=== PATIENT | female | born 1985 | race African-American/Black ===

== ENCOUNTER 2017-03-08 16:01 | Emergency (ER) | payer MEDICARE, OTHER ==
[2017-03-08 16:34] VITALS: BP 116/70; PULSE 78; RESP 16; TEMP 97.8
--- NOTE | 2017-03-08 17:20 | ED ---
Skin/Abscess/FB HPI - General Chief complaint: Skin/Abscess/Foreign Body Stated complaint: Bump in Ear/Cyst in Armpit Time Seen by Provider: 03/08/17 16:38 Source: patient, RN notes reviewed Mode of arrival: ambulatory Limitations: no limitations - History of Present Illness Initial comments: Patient is a 31-year-old female presents to the emergency room for evaluation of right ear lesion. Patient states that she noticed a few days ago small pimple -like lesion. Patient states that the area began draining today with increased pain. Patient does state that she has an earring over her tragus. patient is not sure if the earning is causing the irritation which caused the wound infection. Patient denies any decrease in hearing. Patient denies fevers or chills. Patient denies any neck pain or swollen lymph nodes. Patient denies history of abscesses or MRSA. Patient also states that a small bump forming over her right armpit. Patient states the lump was large yesterday and subsided in size today. Patient denies any drainage from the area. Patient denies any pain from the area. - Related Data Home Medications Medication Instructions Recorded Confirmed ARIPiprazole [Abilify] 5 mg PO HS 10/25/14 03/08/17 DULoxetine HCL [Cymbalta] 60 mg PO HS 10/25/14 03/08/17 traZODone HCL 150 mg PO HS 08/07/16 03/08/17 Previous Rx's Medication Instructions Recorded Sulfamethox-Tmp 800-160Mg [Bactrim 2 each PO Q12HR #56 tab 03/08/17 Ds] Allergies Allergy/AdvReac Type Severity Reaction Status Date / Time No Known Allergies Allergy Verified 03/08/17 16:34 Review of Systems ROS Statement: Those systems with pertinent positive or pertinent negative responses have been documented in the HPI. ROS Other: All systems not noted in ROS Statement are negative. Past Medical History Past Medical History: No Reported History History of Any Multi-Drug Resistant Organisms: None Reported Past Surgical History: No Surgical Hx Reported Past Psychological History: Anxiety, Bipolar, Depression Smoking Status: Current every day smoker Past Alcohol Use History: Rare Past Drug Use History: None Reported General Exam - General Exam Comments Initial Comments: sitting in exam room, no acute distress. Limitations: no limitations General appearance: alert, in no apparent distress Head exam: Present: atraumatic, normocephalic, normal inspection Eye exam: Present: normal appearance Expanded Ear exam: Absent: normal external inspection (Pea size draining abscess over the cavum of the ear, Earring in right tragus) Respiratory exam: Absent: respiratory distress Extremities exam: Present: normal inspection Back exam: Present: normal inspection Neurological exam: Present: alert, oriented X3, CN II-XII intact, normal gait Psychiatric exam: Present: normal affect, normal mood Skin exam: Present: warm, dry, intact, normal color. Absent: rash Course Vital Signs 03/08/17 16:30 Temperature 97.8 F Pulse Rate 78 Respiratory 16 Rate Blood Pressure 116/70 O2 Sat by Pulse 100 Oximetry Medical Decision Making - Medical Decision Making patient is a 31-year-old female presents to emergency for evaluation of right ear abscess. Abscess is already draining. Culture pending. Patient will be started on Bactrim. Advised patient to remove the earring until area has healed. Patient denies any fevers. Patient's vitals are stable. Patient states she understands everything that was discussed with her. Return parameters discussed. Disposition Clinical Impression: Abscess, ear canal Disposition: HOME SELF-CARE Condition: Good Instructions: Abscess (ED) Additional Instructions: keep area clean and dry. Clean area with warm water and antibacterial soap daily. Please remove the earring until area is healed. Take antibiotics as directed. Please follow up with primary care provider in 1-2 days. If any new symptom arises or symptoms worsen, return to ER as soon as possible. Prescriptions: Sulfamethox-Tmp 800-160Mg [Bactrim Ds] 2 each PO Q12HR #56 tab Referrals: Kieran Reyes MD [Primary Care Provider] - 1-2 days Time of Disposition: 17:17
== END 2017-03-08 17:29 | disposition home or self-care (01) ==
LOC: EC 16:01
DX: H60.01 Abscess of right external ear (principal); F41.9 Anxiety disorder, unspecified; F31.9 Bipolar disorder, unspecified; F17.200 Nicotine dependence, unspecified, uncomplicated; Z79.899 Other long term (current) drug therapy
CPT/HCPCS: 87070; 87205; 99283

== ENCOUNTER → 2017-03-23 | Outpatient (CLI) | payer MEDICARE, OTHER | END | disposition home or self-care (01) | LOC: RADECHMAIN 13:05 | PROVIDERS: ATTEND Family Medicine | DX: R00.1 Bradycardia, unspecified (principal); R00.0 Tachycardia, unspecified | CPT/HCPCS: 93225; 93226 ==

== ENCOUNTER 2017-04-22 21:41 | Emergency (ER) | payer MEDICARE, OTHER ==
[2017-04-22] MEDS ORDERED: MORPHINE SULFATE 10 MG/ML SYRINGE IM STA (21:52)
[2017-04-22] MEDS ORDERED: MORPHINE SULFATE 4 MG/ML SYRINGE IV STA ×2 (22:06→22:45)
[2017-04-22] MEDS ORDERED: SODIUM CHLORIDE 0.9% 1,000 ML IV STA (22:06)
[2017-04-22] MEDS ORDERED: ceFAZolin 1,000 MG in DEXTROSE/WATER 1 50ML.BAG IVPB STA (22:08)
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
[2017-04-22 22:59] VITALS: BP 146/69; PULSE 104; RESP 18; TEMP 98
== END 2017-04-22 22:58 | disposition other institution (70) ==
LOC: EC 21:41
DX: T23.002A Burn of unspecified degree of left hand, unspecified site, initial encounter (principal); X08.8XXA Exposure to other specified smoke, fire and flames, initial encounter; W39.XXXA Discharge of firework, initial encounter; Z79.899 Other long term (current) drug therapy; F41.9 Anxiety disorder, unspecified; F31.9 Bipolar disorder, unspecified; F17.200 Nicotine dependence, unspecified, uncomplicated
CPT/HCPCS: 16020; 99284; 96372; 96361; 96374; 96376; 73120; J2270 ×2; J0690

== ENCOUNTER 2018-07-14 13:06 | Emergency (ER) | payer MEDICARE, OTHER ==
[2018-07-14 13:10] VITALS: BP 99/71; PULSE 77; RESP 18; TEMP 97.8
[2018-07-14] MEDS ORDERED: predniSONE 20 MG TAB PO STA (13:41)
--- NOTE | 2018-07-14 13:42 | ED ---
Skin/Abscess/FB HPI - General Chief complaint: Skin/Abscess/Foreign Body Stated complaint: swollen lip Time Seen by Provider: 07/14/18 13:15 Source: patient, RN notes reviewed Mode of arrival: ambulatory Limitations: no limitations - History of Present Illness Initial comments: 32-year-old female who denies past medical history presents today for chief complaint of left upper lip swelling. Patient states that she woke up this morning around 6:15 she noticed swelling of the left upper lip, she thought she was bitten by a bug. Patient states that the swelling is stable at the same throughout the day, has not worsened. Patient denies any difficulty breathing, spread of the swelling to other lips, any swelling below the tongue or of the neck or face. Pt denies any dental pain, rash or any other associated symptoms. Pt appears well upon presentation, VS unremarkable. No signs of distress. Remainder of ROS (-) patient denies any recent fever, chills, shortness of breath, chest pain, back pain, abdominal pain, nausea or vomiting, numbness or tingling, dysuria or hematuria, constipation or diarrhea, headaches or visual changes, or any other complaints. - Related Data Home Medications Medication Instructions Recorded Confirmed ARIPiprazole [Abilify] 5 mg PO HS 10/25/14 04/22/17 DULoxetine HCL [Cymbalta] 60 mg PO HS 10/25/14 04/22/17 traZODone HCL 300 mg PO HS 08/07/16 04/22/17 Omeprazole 20 mg PO HS 04/22/17 04/22/17 Allergies Allergy/AdvReac Type Severity Reaction Status Date / Time No Known Allergies Allergy Verified 07/14/18 13:10 Review of Systems ROS Statement: Those systems with pertinent positive or pertinent negative responses have been documented in the HPI. ROS Other: All systems not noted in ROS Statement are negative. Constitutional: Denies: fever, chills, night sweats Eyes: Denies: vision change ENT: Denies: ear pain, throat pain, dental pain, hearing loss Respiratory: Denies: cough, dyspnea, wheezes, hemoptysis, stridor Cardiovascular: Denies: chest pain, palpitations, dyspnea on exertion, orthopnea Gastrointestinal: Denies: abdominal pain, nausea, vomiting Musculoskeletal: Denies: joint swelling, arthralgia Skin: Reports: as per HPI. Denies: rash Neurological: Denies: headache, weakness, numbness, paresthesias, confusion Past Medical History Past Medical History: No Reported History History of Any Multi-Drug Resistant Organisms: None Reported Past Surgical History: No Surgical Hx Reported Past Psychological History: Anxiety, Bipolar, Depression Smoking Status: Current every day smoker Past Alcohol Use History: Rare Past Drug Use History: None Reported General Exam - General Exam Comments Initial Comments: General: The patient is awake and alert, in no distress, and does not appear acutely ill. Pt is sitting, appears comfortable no signs of distress. Eye: Pupils are equal, round and reactive to light, extra-ocular movements are intact. No nystagmus. There is normal conjunctiva bilaterally. No signs of icterus. Ears, nose, mouth and throat: There are moist mucous membranes and no oral lesions. Neck: The neck is supple, there is no tenderness or JVD. Cardiovascular: There is a regular rate and rhythm. No murmur, rub or gallop is appreciated. Respiratory: Lungs are clear to auscultation, respirations are non-labored, breath sounds are equal. No wheezes, stridor, rales, or rhonchi. Musculoskeletal: Normal ROM, no tenderness. Strength 5/5. Sensation intact. Pulses equal bilaterally 2+. Neurological: A&O x 3. CN II-XII intact, There are no obvious motor or sensory deficits. Coordination appears grossly intact. Speech is normal. Skin: Skin is warm and dry and no rashes or lesions are noted. Very mild swelling of the left side of the upper lip. No palpable lesion or visible break in the skin. Psychiatric: Cooperative, appropriate mood & affect, normal judgment. Limitations: no limitations Course Vital Signs 07/14/18 13:07 Temperature 97.8 F Pulse Rate 77 Respiratory 18 Rate Blood Pressure 99/71 O2 Sat by Pulse 98 Oximetry Medical Decision Making - Medical Decision Making Physical exam reveals left upper lip swelling, pt denies any new medications stating she has been on Trazadone for bipolar for the past 5 years. Pt did think she might have been bit by a bug however there are no signs or symptoms on exam. pt denies trauma, there is no dental pain to palpation of the teeth, gingiva on exam. At this time I feel pt could be having an allergic reaction, although given no clear PE findings for breaking in the skin it is possible was bitten by an insect. There is no generalized swelling of the lips, tongue, neck , face concering for angioedema. No oral findings of dental abscess. Pt denies any form of respiratory distress at this time. Pt given 20mg of prednisone PO. Pt did not have a ride home pt given prescription for Benadryl 25mg to be taken at home. pt was given specific instruction to return for any worsening symptoms. Case discussed with Dr. Rob prior to d/c. Disposition Clinical Impression: Lip swelling Narrative: upper lip left side Disposition: HOME SELF-CARE Condition: Good Instructions: General Allergic Reaction (ED) Additional Instructions: Please use medication as discussed. Please follow-up with family doctor in the next 2 days of symptoms have not improved. Please return to emergency room if the symptoms increase or worsen or for any other concerns. Is patient prescribed a controlled substance at d/c from ED?: No Referrals: Kieran Reyes MD [Primary Care Provider] - 1-2 days Time of Disposition: 13:42
== END 2018-07-14 13:58 | disposition home or self-care (01) ==
LOC: EC 13:06
DX: R22.0 Localized swelling, mass and lump, head (principal); F41.9 Anxiety disorder, unspecified; F31.9 Bipolar disorder, unspecified; F17.200 Nicotine dependence, unspecified, uncomplicated; Z79.899 Other long term (current) drug therapy
CPT/HCPCS: 99283

== ENCOUNTER 2018-08-24 15:02 | Emergency (ER) | payer MEDICARE, OTHER ==
[2018-08-24 15:10] VITALS: PULSE 63; RESP 18
--- NOTE | 2018-08-24 15:15 | ED ---
General Adult HPI - General Chief complaint: Chest Pain Stated complaint: Chest pain Time Seen by Provider: 08/24/18 15:05 Source: EMS, RN notes reviewed Mode of arrival: EMS Limitations: no limitations - History of Present Illness Initial comments: This a 32-year-old female who presents to the emergency department complaining that while she was in a diner she started having her heart race she became lightheaded and thought she was given a passout. Patient states she was also had shortness of breath and some chest discomfort. Patient states that lasted about 5-10 minutes before completely resolved on its own. Patient states she had one other episode before where she thought she was given a passout but it was shortly after she had given plasma. Patient denies having donated plasma recently. Patient denies any drug use or alcohol use. Patient currently denies any symptoms. Patient denies any swelling to her legs or calf tenderness. Patient denies any headache patient denies any numbness weakness. Patient denies any recent fever chills or cough - Related Data Home Medications Medication Instructions Recorded Confirmed ARIPiprazole [Abilify] 5 mg PO DAILY 10/25/14 08/24/18 traZODone HCL 300 mg PO HS 08/07/16 08/24/18 Allergies Allergy/AdvReac Type Severity Reaction Status Date / Time No Known Allergies Allergy Verified 08/24/18 15:36 Review of Systems ROS Statement: Those systems with pertinent positive or pertinent negative responses have been documented in the HPI. ROS Other: All systems not noted in ROS Statement are negative. Past Medical History Past Medical History: No Reported History History of Any Multi-Drug Resistant Organisms: None Reported Past Surgical History: No Surgical Hx Reported Additional Past Surgical History / Comment(s): plate and screws in left ankle Past Psychological History: Anxiety, Bipolar, Depression Smoking Status: Current every day smoker Past Alcohol Use History: Rare Past Drug Use History: Marijuana General Exam - General Exam Comments Initial Comments: GENERAL: Patient is well-developed and well-nourished. Patient is nontoxic and well- hydrated and is in mild distress. ENT: Neck is soft and supple. No significant lymphadenopathy is noted. Oropharynx is clear. Moist mucous membranes. Neck has full range of motion without eliciting any pain. EYES: The sclera were anicteric and conjunctiva were pink and moist. Extraocular movements were intact and pupils were equal round and reactive to light. Eyelids were unremarkable. PULMONARY: Unlabored respirations. Good breath sounds bilaterally. No audible rales rhonchi or wheezing was noted. CARDIOVASCULAR: There is a regular rate and rhythm without any murmurs gallops or rubs ABDOMEN: Soft and nontender with normal bowel sounds. SKIN: Skin is clear with no lesions or rashes and otherwise unremarkable. NEUROLOGIC: Patient is alert and oriented x3. Cranial nerves II through XII are grossly intact. Motor and sensory are also intact. Normal speech, volume and content. Symmetrical smile. MUSCULOSKELETAL: Normal extremities with adequate strength and full range of motion. No lower extremity swelling or edema. No calf tenderness. LYMPHATICS: No significant lymphadenopathy is noted PSYCHIATRIC: Normal psychiatric evaluation. Normal interpersonal interactions appears functionally intact in deals appropriately with others. No signs of depression. No signs of anxiety. Limitations: no limitations Course Vital Signs 08/24/18 15:07 Temperature 98.2 F Pulse Rate 63 Respiratory 18 Rate Blood Pressure 97/67 O2 Sat by Pulse 98 Oximetry Medical Decision Making - Medical Decision Making EKG shows a normal sinus rhythm at 61 bpm NC interval is on a 62 QRS is 70 QT interval 408 QTC is 410 per patient's EKG shows no ST segment elevation or depression or T wave abnormalities are noted Chest x-ray shows no acute abnormality. I went in to tell the patient we have and observe her overnight and she stated she did not want to stay and she would sign out AMA. Patient understands there is any problems she'll return. Patient states she understands the risks of leaving AGAINST MEDICAL ADVICE - Lab Data Result diagrams: 08/24/18 15:27 08/24/18 15:27 Lab Results 08/24/18 08/24/18 08/24/18 Range/Units 15:27 15:27 15:27 WBC 6.4 (3.8-10.6) k/uL RBC 4.03 (3.80-5.40) m/uL Hgb 12.9 (11.4-16.0) gm/dL Hct 37.1 (34.0-46.0) % MCV 91.9 (80.0-100.0) fL MCH 31.9 (25.0-35.0) pg MCHC 34.7 (31.0-37.0) g/dL RDW 12.4 (11.5-15.5) % Plt Count 184 (150-450) k/uL Neutrophils % 58 % Lymphocytes % 35 % Monocytes % 4 % Eosinophils % 2 % Basophils % 0 % Neutrophils # 3.7 (1.3-7.7) k/uL Lymphocytes # 2.2 (1.0-4.8) k/uL Monocytes # 0.3 (0-1.0) k/uL Eosinophils # 0.1 (0-0.7) k/uL Basophils # 0.0 (0-0.2) k/uL PT (9.0-12.0) sec INR (<1.2) APTT (22.0-30.0) sec Sodium 136 L (137-145) mmol/L Potassium 4.4 (3.5-5.1) mmol/L Chloride 109 H (98-107) mmol/L Carbon Dioxide 23 (22-30) mmol/L Anion Gap 4 mmol/L BUN 17 (7-17) mg/dL Creatinine 0.81 (0.52-1.04) mg/dL Est GFR (CKD-EPI)AfAm >90 (>60 ml/min/1.73 sqM) Est GFR (CKD-EPI)NonAf >90 (>60 ml/min/1.73 sqM) Glucose 87 (74-99) mg/dL Calcium 9.0 (8.4-10.2) mg/dL Magnesium 2.1 (1.6-2.3) mg/dL Total Bilirubin 0.4 (0.2-1.3) mg/dL AST 21 (14-36) U/L ALT 26 (9-52) U/L Alkaline Phosphatase 42 (38-126) U/L Total Creatine Kinase 226 H (30-135) U/L CK-MB (CK-2) 1.6 (0.0-2.4) ng/mL CK-MB (CK-2) Rel Index 0.7 Troponin I <0.012 (0.000-0.034) ng/mL Total Protein 5.6 L (6.3-8.2) g/dL Albumin 3.2 L (3.5-5.0) g/dL TSH 0.922 (0.465-4.680) mIU/L Urine Opiates Screen (NotDetected) Ur Oxycodone Screen (NotDetected) Urine Methadone Screen (NotDetected) Ur Propoxyphene Screen (NotDetected) Ur Barbiturates Screen (NotDetected) U Tricyclic Antidepress (NotDetected) Ur Phencyclidine Scrn (NotDetected) Ur Amphetamines Screen (NotDetected) U Methamphetamines Scrn (NotDetected) U Benzodiazepines Scrn (NotDetected) Urine Cocaine Screen (NotDetected) U Marijuana (THC) Screen (NotDetected) 08/24/18 08/24/18 Range/Units 15:27 15:27 WBC (3.8-10.6) k/uL RBC (3.80-5.40) m/uL Hgb (11.4-16.0) gm/dL Hct (34.0-46.0) % MCV (80.0-100.0) fL MCH (25.0-35.0) pg MCHC (31.0-37.0) g/dL RDW (11.5-15.5) % Plt Count (150-450) k/uL Neutrophils % % Lymphocytes % % Monocytes % % Eosinophils % % Basophils % % Neutrophils # (1.3-7.7) k/uL Lymphocytes # (1.0-4.8) k/uL Monocytes # (0-1.0) k/uL Eosinophils # (0-0.7) k/uL Basophils # (0-0.2) k/uL PT 11.0 (9.0-12.0) sec INR 1.1 (<1.2) APTT 21.1 L (22.0-30.0) sec Sodium (137-145) mmol/L Potassium (3.5-5.1) mmol/L Chloride (98-107) mmol/L Carbon Dioxide (22-30) mmol/L Anion Gap mmol/L BUN (7-17) mg/dL Creatinine (0.52-1.04) mg/dL Est GFR (CKD-EPI)AfAm (>60 ml/min/1.73 sqM) Est GFR (CKD-EPI)NonAf (>60 ml/min/1.73 sqM) Glucose (74-99) mg/dL Calcium (8.4-10.2) mg/dL Magnesium (1.6-2.3) mg/dL Total Bilirubin (0.2-1.3) mg/dL AST (14-36) U/L ALT (9-52) U/L Alkaline Phosphatase (38-126) U/L Total Creatine Kinase (30-135) U/L CK-MB (CK-2) (0.0-2.4) ng/mL CK-MB (CK-2) Rel Index Troponin I (0.000-0.034) ng/mL Total Protein (6.3-8.2) g/dL Albumin (3.5-5.0) g/dL TSH (0.465-4.680) mIU/L Urine Opiates Screen Not Detected (NotDetected) Ur Oxycodone Screen Not Detected (NotDetected) Urine Methadone Screen Not Detected (NotDetected) Ur Propoxyphene Screen Not Detected (NotDetected) Ur Barbiturates Screen Not Detected (NotDetected) U Tricyclic Antidepress Not Detected (NotDetected) Ur Phencyclidine Scrn Not Detected (NotDetected) Ur Amphetamines Screen Not Detected (NotDetected) U Methamphetamines Scrn Not Detected (NotDetected) U Benzodiazepines Scrn Not Detected (NotDetected) Urine Cocaine Screen Not Detected (NotDetected) U Marijuana (THC) Screen Detected H (NotDetected) Disposition Clinical Impression: Chest pain, Near syncope Disposition: Left Against Medical Advice Referrals: Kieran Reyes MD [Primary Care Provider] - 1-2 days Time of Disposition: 16:59
[2018-08-24 15:47] LABS: Basophils % (A) 0 %; Eosinophils # (A) 0.1 k/uL (0-0.7); Eosinophils % (A) 2 %; HCT 37.1 % (34.0-46.0); HGB 12.9 gm/dL (11.4-16.0); Lymphocytes # (A) 2.2 k/uL (1.0-4.8); Lymphocytes % (A) 35 %; MCH 31.9 pg (25.0-35.0); MCHC 34.7 g/dL (31.0-37.0); MCV 91.9 fL (80.0-100.0); Mean Platelet Volume 8.4; Monocytes # (A) 0.3 k/uL (0-1.0); Monocytes % (A) 4 %; Neutrophils # (A) 3.7 k/uL (1.3-7.7); Neutrophils % (A) 58 %; Platelet Count 184 k/uL (150-450); RBC 4.03 m/uL (3.80-5.40); RDW 12.4 % (11.5-15.5); WBC 6.4 k/uL (3.8-10.6)
--- NOTE | 2018-08-24 15:49 | XR ---
EXAMINATION TYPE: XR chest 2V DATE OF EXAM: 08/24/2018 COMPARISON: NONE HISTORY: Dysrhythmia, chest pain TECHNIQUE: Frontal and lateral views of the chest are obtained. FINDINGS: There is no focal air space opacity, pleural effusion, or pneumothorax seen. The cardiac silhouette size is within normal limits. There is a spinal curvature. The osseous structures are int act. There are overlying cardiac leads. IMPRESSION: No acute cardiopulmonary process.
[2018-08-24 15:53] LABS: INR 1.1 (<1.2)
[2018-08-24 15:57] LABS: Amphetamine Screen,Urine Not Detected (NotDetected); Barbiturate Screen,Urine Not Detected (NotDetected); Benzodiazepines Screen,Urine Not Detected (NotDetected); Cocaine Screen,Urine Not Detected (NotDetected); Methadone Screen, Urine Not Detected (NotDetected); Opiate Screen,Urine Not Detected (NotDetected); Oxycodone Screen, Urine Not Detected (NotDetected); Phencyclidine Screen,Urine Not Detected (NotDetected); Tricyclic Antidepressant,Urine Not Detected (NotDetected); Urn Cannabinoid Scrn Detected (NotDetected)
[2018-08-24 16:02] LABS: Partial Thromboplastin Time 21.1 sec (22.0-30.0)
[2018-08-24 16:12] LABS: Creatine Kinase 226 U/L (30-135)
[2018-08-24 16:14] LABS: ALT 26 U/L (9-52); AST 21 U/L (14-36); Albumin 3.2 g/dL (3.5-5.0); Alkaline Phosphatase 42 U/L (38-126); Anion Gap 4 mmol/L; Blood Urea Nitrogen 17 mg/dL (7-17); Carbon Dioxide 23 mmol/L (22-30); Chloride 109 mmol/L (98-107); Glucose 87 mg/dL (74-99); Magnesium 2.1 mg/dL (1.6-2.3); Potassium 4.4 mmol/L (3.5-5.1); Sodium 136 mmol/L (137-145); Total Bilirubin 0.4 mg/dL (0.2-1.3); Total Protein 5.6 g/dL (6.3-8.2)
[2018-08-24 16:23] LABS: Creatine Kinase MB 1.6 ng/mL (0.0-2.4); Troponin I <0.012 ng/mL (0.000-0.034)
[2018-08-24 17:42] VITALS: BP 96/62; TEMP 97.8
== END 2018-08-24 17:41 | disposition left against medical advice (07) ==
LOC: EC 15:02
DX: R07.89 Other chest pain (principal); R55 Syncope and collapse; R06.02 Shortness of breath; R42 Dizziness and giddiness; F31.9 Bipolar disorder, unspecified; F41.9 Anxiety disorder, unspecified; F17.200 Nicotine dependence, unspecified, uncomplicated; Z79.899 Other long term (current) drug therapy; Z53.29 Procedure and treatment not carried out because of patient's decision for other reasons
CPT/HCPCS: 36415; 71046; 80053; 80306; 82550; 82553; 83735; 84443; 84484; 85025; 85610; 85730; 93005; 99285

== ENCOUNTER 2018-11-09 19:04 | Emergency (ER) | payer MEDICARE, OTHER ==
[2018-11-09 19:09] VITALS: RESP 18
--- NOTE | 2018-11-09 19:22 | ED ---
General Adult HPI - General Chief complaint: Psychiatric Symptoms Stated complaint: mental health Time Seen by Provider: 11/09/18 19:10 Source: patient, RN notes reviewed Mode of arrival: ambulatory Limitations: no limitations - History of Present Illness Initial comments: Patient is a pleasant 33-year-old female presenting to the emergency department by police escort for mental health evaluation. Patient states she did have bad thoughts earlier however is doing better at this time and no longer has those. Patient admits to previously having thoughts of self-harm. Patient denies suicidal ideation at this time. Patient does have a history of similar problems previously. No homicidal thoughts. No physical complaints. No alcohol or street drug use. No hallucinations. - Related Data Home Medications Medication Instructions Recorded Confirmed ARIPiprazole [Abilify] 5 mg PO DAILY 10/25/14 08/24/18 traZODone HCL 300 mg PO HS 08/07/16 08/24/18 Allergies Allergy/AdvReac Type Severity Reaction Status Date / Time No Known Allergies Allergy Verified 11/09/18 19:09 Review of Systems ROS Statement: Those systems with pertinent positive or pertinent negative responses have been documented in the HPI. ROS Other: All systems not noted in ROS Statement are negative. Constitutional: Denies: fever Eyes: Denies: eye pain ENT: Denies: ear pain Respiratory: Denies: cough Cardiovascular: Denies: chest pain Endocrine: Denies: fatigue Gastrointestinal: Denies: abdominal pain Genitourinary: Denies: dysuria Musculoskeletal: Denies: back pain Skin: Denies: rash Psychiatric: Reports: as per HPI Past Medical History Past Medical History: No Reported History History of Any Multi-Drug Resistant Organisms: None Reported Past Surgical History: No Surgical Hx Reported Additional Past Surgical History / Comment(s): plate and screws in left ankle Past Psychological History: Anxiety, Bipolar, Depression Smoking Status: Current every day smoker Past Alcohol Use History: Rare Past Drug Use History: Marijuana General Exam Limitations: no limitations General appearance: alert, in no apparent distress Head exam: Present: atraumatic Eye exam: Present: normal appearance Neck exam: Present: normal inspection Respiratory exam: Present: normal lung sounds bilaterally Cardiovascular Exam: Present: regular rate, normal rhythm GI/Abdominal exam: Present: soft. Absent: tenderness Extremities exam: Present: normal inspection Neurological exam: Present: alert Psychiatric exam: Present: normal affect Skin exam: Present: normal color Course Vital Signs 11/09/18 19:05 Temperature 98.4 F Pulse Rate 87 Respiratory 18 Rate Blood Pressure 101/66 O2 Sat by Pulse 99 Oximetry Medical Decision Making - Medical Decision Making Patient was seen by mental health services who does recommend discharge. Patient reevaluated and denies suicidal ideation and does contract for safety. Disposition Clinical Impression: Depression Disposition: HOME SELF-CARE Condition: Stable Instructions (If sedation given, give patient instructions): Depression (ED), Help Prevent Suicide (ED) Additional Instructions: Please follow-up with mental health services as directed. Also follow-up with primary care physician. Return for thoughts of self-harm or worsening symptoms. Is patient prescribed a controlled substance at d/c from ED?: No Referrals: Kieran Reyes MD [Primary Care Provider] - 1-2 days Time of Disposition: 20:08
[2018-11-09 20:06] LABS: Appearance,Urine Clear (Clear); Bilirubin,Urine Negative (Negative); Blood,Urine Negative (Negative); Color,Urine Light Yellow; Glucose,Urine (UA) Negative (Negative); Ketones,Urine Negative (Negative); Leukocyte Esterase,Urine Negative (Negative); Nitrite,Urine Negative (Negative); Protein,Urine Negative (Negative); Specific Gravity,Urine 1.005 (1.001-1.035); Urobilinogen,Urine <2.0 mg/dL (<2.0)
[2018-11-09 20:15] LABS: Amphetamine Screen,Urine Not Detected (NotDetected); Benzodiazepines Screen,Urine Not Detected (NotDetected); Cocaine Screen,Urine Not Detected (NotDetected); Opiate Screen,Urine Not Detected (NotDetected); Phencyclidine Screen,Urine Not Detected (NotDetected); Tricyclic Antidepressant,Urine Not Detected (NotDetected); Urn Cannabinoid Scrn Detected (NotDetected)
[2018-11-09 20:16] LABS: Barbiturate Screen,Urine Not Detected (NotDetected); Methadone Screen, Urine Not Detected (NotDetected); Oxycodone Screen, Urine Not Detected (NotDetected)
[2018-11-09 20:18] VITALS: BP 122/71; PULSE 59; TEMP 97.3
== END 2018-11-09 20:21 | disposition home or self-care (01) ==
LOC: EC 19:04
DX: F31.9 Bipolar disorder, unspecified (principal); F41.9 Anxiety disorder, unspecified; F17.200 Nicotine dependence, unspecified, uncomplicated; Z98.890 Other specified postprocedural states; Z79.899 Other long term (current) drug therapy
CPT/HCPCS: 80306; 81003; 99284

== ENCOUNTER 2019-03-16 08:32 | Emergency (ER) | payer MEDICARE, OTHER ==
[2019-03-16 08:41] VITALS: BP 112/70; PULSE 80; RESP 18; TEMP 97.6
--- NOTE | 2019-03-16 08:53 | ED ---
Female Urogenital HPI - General Chief complaint: Urogenital Stated complaint: poss uti Time Seen by Provider: 03/16/19 08:46 Source: patient, RN notes reviewed, old records reviewed Mode of arrival: ambulatory Limitations: no limitations - History of Present Illness Initial comments: Patient is a 33-year-old female presents for service today for complaints of dysuria. Patient reports that she has had symptoms for the past 2 days. She has history of UTIs. She can tell that she's has one at this time. Denies any significant back pain nausea vomiting. Patient states that she's had no vaginal discharge. Patient denies any recent fever, chills, shortness of breath, chest pain, back pain, abdominal pain, nausea vomiting, numbness or tingling, dysuria or hematuria, constipation or diarrhea, headaches or visual changes, or any other current symptoms Last Menstrual Period: 03/02/19 - Related Data Home Medications Medication Instructions Recorded Confirmed ARIPiprazole [Abilify] 5 mg PO HS 10/25/14 03/16/19 traZODone HCL 300 mg PO HS 08/07/16 03/16/19 Ibuprofen [Motrin Ib] 400 mg PO Q6H PRN 03/16/19 03/16/19 Varenicline [Chantix Continuing 1 mg PO BID 03/16/19 03/16/19 Pack] Previous Rx's Medication Instructions Recorded Nitrofurantoin Monohyd/M-Cryst 100 mg PO Q12HR #14 cap 03/16/19 [Macrobid] Phenazopyridine [Pyridium] 100 mg PO TID #9 tablet 03/16/19 Allergies Allergy/AdvReac Type Severity Reaction Status Date / Time No Known Allergies Allergy Verified 03/16/19 08:41 Review of Systems ROS Statement: Those systems with pertinent positive or pertinent negative responses have been documented in the HPI. ROS Other: All systems not noted in ROS Statement are negative. Past Medical History Past Medical History: No Reported History History of Any Multi-Drug Resistant Organisms: None Reported Past Surgical History: Orthopedic Surgery Additional Past Surgical History / Comment(s): plate and screws in left ankle Past Psychological History: Anxiety, Bipolar, Depression Smoking Status: Current every day smoker Past Alcohol Use History: Rare Past Drug Use History: Marijuana General Exam - General Exam Comments Initial Comments: 33-year-old female. Alert and oriented. No distress. Limitations: no limitations General appearance: alert, in no apparent distress Head exam: Present: atraumatic, normocephalic, normal inspection Eye exam: Present: normal appearance, PERRL, EOMI. Absent: scleral icterus, conjunctival injection, periorbital swelling ENT exam: Present: normal exam, mucous membranes moist Neck exam: Present: normal inspection. Absent: tenderness, meningismus, lymphadenopathy Respiratory exam: Present: normal lung sounds bilaterally. Absent: respiratory distress, wheezes, rales, rhonchi, stridor Cardiovascular Exam: Present: regular rate, normal rhythm, normal heart sounds. Absent: systolic murmur, diastolic murmur, rubs, gallop, clicks GI/Abdominal exam: Present: soft, normal bowel sounds. Absent: distended, tenderness, guarding, rebound, rigid Extremities exam: Present: normal inspection, full ROM, normal capillary refill. Absent: tenderness, pedal edema, joint swelling, calf tenderness Back exam: Present: normal inspection Neurological exam: Present: alert, oriented X3, CN II-XII intact Psychiatric exam: Present: normal affect, normal mood Course Vital Signs 03/16/19 08:39 Temperature 97.6 F Pulse Rate 80 Respiratory 18 Rate Blood Pressure 112/70 O2 Sat by Pulse 99 Oximetry Medical Decision Making - Medical Decision Making Patient is a 33-year-old female presents with dysuria for the past 2 days. Has history of urinary tract infections. Denies any back pain or abdominal pain. Patient's urinalysis does show significant hematuria. Patient had some bacteria noted in urine. Culture will be complete. Certainly Patient on Macrobid, advised close follow-up with primary care doctor. All cushions answer. - Lab Data Lab Results 03/16/19 03/16/19 Range/Units 08:54 08:54 Urine Color Light Yellow Urine Appearance Cloudy H (Clear) Urine pH 7.0 (5.0-8.0) Ur Specific [place] 1.013 (1.001-1.035) Urine Protein 1+ H (Negative) Urine Glucose (UA) Negative (Negative) Urine Ketones Negative (Negative) Urine Blood Small H (Negative) Urine Nitrite Negative (Negative) Urine Bilirubin Negative (Negative) Urine Urobilinogen <2.0 (<2.0) mg/dL Ur Leukocyte Esterase Large H (Negative) Urine RBC 50 H (0-5) /hpf Ur Squamous Epith Cells 2 (0-4) /hpf Urine Bacteria Rare H (None) /hpf Urine Mucus Rare H (None) /hpf Urine HCG, Qual Not Detected (Not Detectd) Disposition Clinical Impression: UTI (urinary tract infection) Disposition: HOME SELF-CARE Condition: Good Instructions (If sedation given, give patient instructions): Urinary Tract Infection in Women (ED) Additional Instructions: Patient advised to see PCP and return to ED if any alarming signs or symptoms occur. Prescriptions: Nitrofurantoin Monohyd/M-Cryst [Macrobid] 100 mg PO Q12HR #14 cap Phenazopyridine [Pyridium] 100 mg PO TID #9 tablet Is patient prescribed a controlled substance at d/c from ED?: No Referrals: Kieran Reyes MD [Primary Care Provider] - 1-2 days Time of Disposition: 09:13
[2019-03-16 09:07] LABS: Appearance,Urine Cloudy (Clear); Bacteria,Urine Rare /hpf; Bilirubin,Urine Negative (Negative); Blood,Urine Small (Negative); Color,Urine Light Yellow; Glucose,Urine (UA) Negative (Negative); Ketones,Urine Negative (Negative); Leukocyte Esterase,Urine Large (Negative); Mucus,Urine Rare /hpf; Nitrite,Urine Negative (Negative); Protein,Urine 1+ (Negative); RBC,Urine 50 /hpf (0-5); Specific Gravity,Urine 1.013 (1.001-1.035); Squamous Epithelial Cell,Urine 2 /hpf (0-4); Urobilinogen,Urine <2.0 mg/dL (<2.0)
== END 2019-03-16 09:24 | disposition home or self-care (01) ==
LOC: EC 08:32
DX: N39.0 Urinary tract infection, site not specified (principal); F41.9 Anxiety disorder, unspecified; F31.9 Bipolar disorder, unspecified; F17.200 Nicotine dependence, unspecified, uncomplicated; Z79.899 Other long term (current) drug therapy
CPT/HCPCS: 81001; 81025; 87086; 99284

== ENCOUNTER 2019-08-20 11:01 | Emergency (ER) | payer MEDICARE, OTHER ==
[2019-08-20 11:29] VITALS: TEMP 99
--- NOTE | 2019-08-20 12:03 | ED ---
General Adult HPI - General Chief complaint: Psychiatric Symptoms Stated complaint: Head injury Time Seen by Provider: 08/20/19 11:25 Source: patient, police, RN notes reviewed, old records reviewed Mode of arrival: ambulatory Limitations: no limitations - History of Present Illness Initial comments: This is a 33-year-old female who presents emergency department from the alf. Patient came in intoxicated last evening to the alf he started banging her head against a wall. Patient developed a large hematoma on her head and they brought her to the emergency department to be evaluated. Patient at that time was stating she was suicidal. Patient denies suicidality at this time. Patient did this at 3:57 AM this morning but because hematoma was getting larger they brought her into the emergency department now. Patient denies any neck pain. Patient denies any loss of consciousness or being days. Patient states she has a mild headache. Patient denies any other injury. Patient denies any illegal drugs other than marijuana. Patient states last night she was drinking vodka. - Related Data Home Medications Medication Instructions Recorded Confirmed ARIPiprazole [Abilify] 5 mg PO HS 10/25/14 08/20/19 traZODone HCL [Desyrel] 300 mg PO HS 08/20/19 08/20/19 Allergies Allergy/AdvReac Type Severity Reaction Status Date / Time No Known Allergies Allergy Verified 08/20/19 13:17 Review of Systems ROS Statement: Those systems with pertinent positive or pertinent negative responses have been documented in the HPI. ROS Other: All systems not noted in ROS Statement are negative. Past Medical History Past Medical History: No Reported History History of Any Multi-Drug Resistant Organisms: None Reported Past Surgical History: Orthopedic Surgery Additional Past Surgical History / Comment(s): plate and screws in left ankle Past Psychological History: Anxiety, Bipolar, Depression Smoking Status: Current every day smoker Past Alcohol Use History: Rare Past Drug Use History: Marijuana General Exam - General Exam Comments Initial Comments: GENERAL: Patient is well-developed and well-nourished. Patient is nontoxic and well- hydrated and is in mild distress. Patient has a large forehead hematoma ENT: Neck is soft and supple. No significant lymphadenopathy is noted. Oropharynx is clear. Moist mucous membranes. Neck has full range of motion without eliciting any pain. EYES: The sclera were anicteric and conjunctiva were pink and moist. Extraocular movements were intact and pupils were equal round and reactive to light. Eyelids were unremarkable. PULMONARY: Unlabored respirations. Good breath sounds bilaterally. No audible rales rhonchi or wheezing was noted. CARDIOVASCULAR: There is a regular rate and rhythm without any murmurs gallops or rubs. ABDOMEN: Soft and nontender with normal bowel sounds. SKIN: Skin is clear with no lesions or rashes and otherwise unremarkable. NEUROLOGIC: Patient is alert and oriented x3. Cranial nerves II through XII are grossly intact. Motor and sensory are also intact. Normal speech, volume and content. Symmetrical smile. MUSCULOSKELETAL: Normal extremities with adequate strength and full range of motion. LYMPHATICS: No significant lymphadenopathy is noted PSYCHIATRIC: Normal psychiatric evaluation. Limitations: no limitations Course Vital Signs 08/20/19 11:26 Temperature 99.0 F Pulse Rate 91 Respiratory 18 Rate Blood Pressure 123/81 O2 Sat by Pulse 98 Oximetry Medical Decision Making - Medical Decision Making Patient's CT of the brain to shows a hematoma no intracranial hemorrhage or skull fracture. EPS evaluated the patient and determined the patient go back the alf - Lab Data Lab Results 08/20/19 Range/Units 12:03 Urine Opiates Screen Not Detected (NotDetected) Ur Oxycodone Screen Not Detected (NotDetected) Urine Methadone Screen Not Detected (NotDetected) Ur Propoxyphene Screen Not Detected (NotDetected) Ur Barbiturates Screen Not Detected (NotDetected) U Tricyclic Antidepress Not Detected (NotDetected) Ur Phencyclidine Scrn Not Detected (NotDetected) Ur Amphetamines Screen Not Detected (NotDetected) U Methamphetamines Scrn Not Detected (NotDetected) U Benzodiazepines Scrn Not Detected (NotDetected) Urine Cocaine Screen Not Detected (NotDetected) U Marijuana (THC) Screen Detected H (NotDetected) Disposition Clinical Impression: Situational depression, Traumatic hematoma of forehead Disposition: HOME SELF-CARE Condition: Good Instructions (If sedation given, give patient instructions): Head Injury (ED), Hematoma (ED) Is patient prescribed a controlled substance at d/c from ED?: No Referrals: Kieran Reyes MD [Primary Care Provider] - 1-2 days Time of Disposition: 13:54
[2019-08-20 12:33] LABS: Amphetamine Screen,Urine Not Detected (NotDetected); Barbiturate Screen,Urine Not Detected (NotDetected); Benzodiazepines Screen,Urine Not Detected (NotDetected); Cocaine Screen,Urine Not Detected (NotDetected); Methadone Screen, Urine Not Detected (NotDetected); Opiate Screen,Urine Not Detected (NotDetected); Oxycodone Screen, Urine Not Detected (NotDetected); Phencyclidine Screen,Urine Not Detected (NotDetected); Tricyclic Antidepressant,Urine Not Detected (NotDetected); Urn Cannabinoid Scrn Detected (NotDetected)
--- NOTE | 2019-08-20 12:33 | CT ---
EXAMINATION TYPE: CT brain wo con DATE OF EXAM: 08/20/2019 COMPARISON: NONE HISTORY: Head trauma, frontal bone swelling and abrasion CT DLP: 1083.4 mGycm Automated exposure control for dose reduction was used. FINDINGS: There is soft tissue swelling over the frontal area bilaterally. Central structures are midline. There is no evidence of hydrocephalus. No acute intracranial lesion i s seen. There is no mass effect, midline shift or intracranial blood. Visualized portions of the paranasal sinuses and mastoids are clear. The bony calvarium is intact. IMPRESSION: 1. NO ACUTE INTRACRANIAL ABNORMALITY. 2. BILATERAL FRONTAL SCALP HEMATOMA.
[2019-08-20 13:57] VITALS: BP 120/82; PULSE 90; RESP 16
== END 2019-08-20 13:56 | disposition home or self-care (01) ==
LOC: EC 11:01
DX: S00.03XA Contusion of scalp, initial encounter (principal); F43.21 Adjustment disorder with depressed mood; F41.9 Anxiety disorder, unspecified; F31.9 Bipolar disorder, unspecified; F17.200 Nicotine dependence, unspecified, uncomplicated; Z79.899 Other long term (current) drug therapy; W22.01XA Walked into wall, initial encounter
CPT/HCPCS: 70450; 80306; 82075; 99284

== ENCOUNTER 2019-09-26 06:13 | Emergency (ER) | payer MEDICARE, OTHER ==
[2019-09-26] MEDS ORDERED: ASPIRIN 81 MG PO STA (06:29)
--- NOTE | 2019-09-26 06:44 | ED ---
Chest Pain HPI - General Chief Complaint: Chest Pain Stated Complaint: Chest Pains Time Seen by Provider: 09/26/19 06:21 Source: patient, RN notes reviewed Mode of arrival: ambulatory Limitations: no limitations - History of Present Illness Initial Comments: 33-year-old female presents emergency from chief complaint of chest pain. Patient states started a few hours ago. Patient states that has improved. He was centralized nonradiating chest pain. Patient states she did feel short of breath at time and slightly dizzy but states symptoms have resolved. She denies any complaints of abdominal pain, vomiting, fever, chills, diarrhea constipation. Patient states that she takes trazodone and Abilify she is a daily smoker. Denies any prior cardiac disease. Denies hypertension, hyperlipidemia, diabetes, family cardiac disease - Related Data Home Medications Medication Instructions Recorded Confirmed ARIPiprazole [Abilify] 5 mg PO HS 10/25/14 08/20/19 traZODone HCL [Desyrel] 300 mg PO HS 08/20/19 08/20/19 Allergies Allergy/AdvReac Type Severity Reaction Status Date / Time No Known Allergies Allergy Verified 09/26/19 06:20 Review of Systems ROS Statement: Those systems with pertinent positive or pertinent negative responses have been documented in the HPI. ROS Other: All systems not noted in ROS Statement are negative. EKG Findings - EKG Comments: EKG Findings:: EKG performed at 6:40 normal sinus rhythm rate of 66 TN 160 QRS 74 QT/QTC 410/429 - EKG Results: EKG: interpreted by JOLIED Past Medical History Past Medical History: No Reported History Additional Past Medical History / Comment(s): bipolar History of Any Multi-Drug Resistant Organisms: None Reported Past Surgical History: Orthopedic Surgery Additional Past Surgical History / Comment(s): plate and screws in left ankle Past Psychological History: Anxiety, Bipolar, Depression Smoking Status: Current every day smoker Past Alcohol Use History: Rare Past Drug Use History: Marijuana General Exam Limitations: no limitations General appearance: alert, in no apparent distress Head exam: Present: atraumatic, normocephalic, normal inspection Eye exam: Present: normal appearance, PERRL, EOMI. Absent: scleral icterus, conjunctival injection, periorbital swelling ENT exam: Present: normal exam, normal oropharynx, mucous membranes moist Neck exam: Present: normal inspection, full ROM. Absent: tenderness, meningismus, lymphadenopathy Respiratory exam: Present: normal lung sounds bilaterally. Absent: respiratory distress, wheezes, rales, rhonchi, stridor Cardiovascular Exam: Present: regular rate, normal rhythm, normal heart sounds. Absent: systolic murmur, diastolic murmur, rubs, gallop, clicks GI/Abdominal exam: Present: soft, normal bowel sounds. Absent: distended, tenderness, guarding, rebound, rigid Course Vital Signs 09/26/19 09/26/19 06:16 06:28 Temperature 97.7 F Pulse Rate 71 Pulse Rate [ 75 [facility] [employer] [facility] ] Respiratory 20 Rate Blood Pressure 105/67 O2 Sat by Pulse 100 Oximetry Chest Pain MDM - MDM 33-year-old presented for atypical chest pain. Patient had EKG, labs, troponin urinalysis. Patient has elevated d-dimer and which CT was obtained shows no evidence of pulmonary embolism. Patient symptom-free after an hour in the emergency Department. She has no current symptoms she is stable for discharge. Patient agrees with discharge and close follow-up. Disposition Clinical Impression: Chest pain Disposition: HOME SELF-CARE Condition: Stable Instructions (If sedation given, give patient instructions): Chest Pain (ED) Additional Instructions: Please return to the Emergency Department if symptoms worsen or any other concerns. Is patient prescribed a controlled substance at d/c from ED?: No Referrals: Kieran Reyes MD [Primary Care Provider] - 1-2 days Time of Disposition: 09:07
[2019-09-26 06:57] LABS: Basophils % (A) 0 %; Eosinophils # (A) 0.1 k/uL (0-0.7); Eosinophils % (A) 2 %; HCT 38.8 % (34.0-46.0); HGB 13.2 gm/dL (11.4-16.0); Lymphocytes # (A) 1.6 k/uL (1.0-4.8); Lymphocytes % (A) 22 %; MCH 31.4 pg (25.0-35.0); MCV 92.2 fL (80.0-100.0); Mean Platelet Volume 7.7; Monocytes # (A) 0.4 k/uL (0-1.0); Monocytes % (A) 5 %; Neutrophils # (A) 5.2 k/uL (1.3-7.7); Neutrophils % (A) 70 %; Platelet Count 253 k/uL (150-450); RBC 4.21 m/uL (3.80-5.40); WBC 7.4 k/uL (3.8-10.6)
[2019-09-26 06:58] LABS: Appearance,Urine Clear (Clear); Bilirubin,Urine Negative (Negative); Blood,Urine Small (Negative); Color,Urine Yellow; Glucose,Urine (UA) Negative (Negative); Ketones,Urine Negative (Negative); Leukocyte Esterase,Urine Negative (Negative); Mucus,Urine Few /hpf; Nitrite,Urine Negative (Negative); Protein,Urine Negative (Negative); RBC,Urine 1 /hpf (0-5); Specific Gravity,Urine 1.015 (1.001-1.035); Squamous Epithelial Cell,Urine <1 /hpf (0-4); Urobilinogen,Urine <2.0 mg/dL (<2.0); WBC,Urine 3 /hpf (0-5)
--- NOTE | 2019-09-26 07:04 | XR ---
EXAMINATION TYPE: XR chest 2V DATE OF EXAM: 09/26/2019 COMPARISON: 08/24/2018 HISTORY: Chest pain TECHNIQUE: Frontal and lateral views of the chest are obtained. FINDINGS: Heart and mediastinum are normal. Lungs are clear. Diaphragm is normal. Bony thorax appear s normal. IMPRESSION: Normal chest. No change.
[2019-09-26 07:06] LABS: ALT 17 U/L (9-52); AST 17 U/L (14-36); African American GFR (CKD) >90 (>60 ml/min/1.73 sqM); Albumin 4.5 g/dL (3.5-5.0); Alkaline Phosphatase 57 U/L (38-126); Anion Gap 10 mmol/L; Blood Urea Nitrogen 19 mg/dL (7-17); Calcium 9.6 mg/dL (8.4-10.2); Carbon Dioxide 24 mmol/L (22-30); Chloride 105 mmol/L (98-107); Glucose 72 mg/dL (74-99); Non-African American GFR(CKD) >90 (>60 ml/min/1.73 sqM); Potassium 3.6 mmol/L (3.5-5.1); Sodium 139 mmol/L (137-145); Total Bilirubin 0.6 mg/dL (0.2-1.3); Total Protein 7.6 g/dL (6.3-8.2)
[2019-09-26 07:57] LABS: D-Dimer 0.88 mg/L FEU (<0.60); Partial Thromboplastin Time 20.6 sec (22.0-30.0)
--- NOTE | 2019-09-26 09:01 | CT ---
CT CHEST FOR PULMONARY EMBOLISM. EXAMINATION TYPE: CT chest angio for PE DATE OF EXAM: 09/26/2019 INDICATION: Chest pain CT DLP: 384.5 mGycm, Automated exposure control for dose reduction was used. CONTRAST: Patient injected with 100 ml mL of Isovue 370. COMPARISON: None TECHNIQUE: CT of the chest is performed on a spiral scan at 2 mm thick sections. Study is performed with intravenous contrast timed for evaluation for pulmonary embolism. This will limit additional po rtions of the evaluation. 3-D MIP images reconstructed by the technologist are reviewed on the compu ter in the coronal and sagittal planes. FINDINGS: No persistent filling defects are evident to suggest an acute pulmonary embolism. No mediastinal or hilar adenopathy enlarged by CT criteria is evident. The ascending aorta diameter at the level of the main pulmonary artery is 3.5 cm. The main pulmonary artery diameter at the bifur cation is 2.3 cm. Lung windows are clear. Very minimal emphysematous change may be present with a few blebs near the adrianne ng apices. Limited CT section through the upper abdomen are unremarkable. IMPRESSIONS: 1. No acute pulmonary embolism.
[2019-09-26 10:25] VITALS: BP 112/73; PULSE 84; RESP 18; TEMP 97.9
== END 2019-09-26 10:25 | disposition home or self-care (01) ==
LOC: EC 06:13
DX: R07.9 Chest pain, unspecified (principal); R79.1 Abnormal coagulation profile; F41.9 Anxiety disorder, unspecified; F31.9 Bipolar disorder, unspecified; F17.200 Nicotine dependence, unspecified, uncomplicated; Z79.899 Other long term (current) drug therapy
CPT/HCPCS: 36415; 93005; 85379; 80053; 83690; 83735; 84484; 85025; 85610; 85730; 81001; 81025; 71046; 71275; 99285; Q9967

== ENCOUNTER 2021-05-28 16:36 | Emergency (ER) | payer MEDICARE, OTHER ==
--- NOTE | 2021-05-28 17:05 | ED ---
General Adult HPI - General Chief complaint: Psychiatric Symptoms Stated complaint: mental health Time Seen by Provider: 05/28/21 16:57 Source: patient, RN notes reviewed, old records reviewed Mode of arrival: EMS Limitations: no limitations - History of Present Illness Initial comments: This is a 35-year-old female who presents emergency Department because of suicidal ideations. She was talking to her counselor all day and did say she wanted to slit her throat she also told us to the [place] police then petitioned her brought her to the emergency department. Patient states she thinks she could be safe but she is very upset because a lot of things that transpired at her home particularly the fact that she may be going through divorce now which was a surprise to her. Patient states she uses crack cocaine and cocaine. Patient states she wants to go to rehab this weekend. Patient denies any physical complaints today. Patient denies any fever chills or cough per patient denies any vomiting diarrhea. Patient states she can't be because she is a lesbian. - Related Data Home Medications Medication Instructions Recorded Confirmed ARIPiprazole [Abilify] 5 mg PO HS 10/25/14 08/20/19 traZODone HCL [Desyrel] 300 mg PO HS 08/20/19 08/20/19 Allergies Allergy/AdvReac Type Severity Reaction Status Date / Time No Known Allergies Allergy Verified 09/26/19 06:20 Review of Systems ROS Statement: Those systems with pertinent positive or pertinent negative responses have been documented in the HPI. ROS Other: All systems not noted in ROS Statement are negative. Past Medical History Past Medical History: No Reported History Additional Past Medical History / Comment(s): bipolar History of Any Multi-Drug Resistant Organisms: None Reported Past Surgical History: Orthopedic Surgery Additional Past Surgical History / Comment(s): plate and screws in left ankle Past Psychological History: Anxiety, Bipolar, Depression Past Alcohol Use History: Rare Past Drug Use History: Marijuana General Exam - General Exam Comments Initial Comments: GENERAL: Patient is well-developed and well-nourished. Patient is nontoxic and well- hydrated and is in no acute distress. ENT: Neck is soft and supple. No significant lymphadenopathy is noted. Oropharynx is clear. Moist mucous membranes. Neck has full range of motion without eliciting any pain. EYES: The sclera were anicteric and conjunctiva were pink and moist. Extraocular movements were intact and pupils were equal round and reactive to light. Eyelids were unremarkable. PULMONARY: Unlabored respirations. Good breath sounds bilaterally. No audible rales rhonchi or wheezing was noted. CARDIOVASCULAR: There is a regular rate and rhythm without any murmurs gallops or rubs. ABDOMEN: Soft and nontender with normal bowel sounds. SKIN: Skin is clear with no lesions or rashes and otherwise unremarkable. NEUROLOGIC: Patient is alert and oriented x3. Cranial nerves II through XII are grossly intact. Motor and sensory are also intact. Normal speech, volume and content. Symmetrical smile. MUSCULOSKELETAL: Normal extremities with adequate strength and full range of motion. PSYCHIATRIC: She was very depressed and did make comments about wanting to kill himself earlier. Limitations: no limitations Course Vital Signs 05/28/21 16:52 Temperature 98.2 F Pulse Rate 71 Respiratory 19 Rate Blood Pressure 97/65 O2 Sat by Pulse 99 Oximetry Medical Decision Making - Medical Decision Making EPS evaluated the patient and determined the patient could go home safely with follow-up at [facility] which patient was in agreement with so she did get a safety plan and when she talked to me she stated that she would be safe and states she just made comments earlier about suicide because she was upset. Disposition Clinical Impression: Situational depression Disposition: HOME SELF-CARE Condition: Good Instructions (If sedation given, give patient instructions): Depression (ED) Is patient prescribed a controlled substance at d/c from ED?: No Referrals: Kieran Reyes MD [Primary Care Provider] - 1-2 days Time of Disposition: 17:53
[2021-05-28 18:38] VITALS: BP 107/63; PULSE 76; RESP 18; TEMP 98.5
== END 2021-05-28 18:34 | disposition home or self-care (01) ==
LOC: EC 16:36
DX: F43.21 Adjustment disorder with depressed mood (principal); F41.9 Anxiety disorder, unspecified; F31.9 Bipolar disorder, unspecified; F12.90 Cannabis use, unspecified, uncomplicated
CPT/HCPCS: 82075; 99284

== ENCOUNTER 2021-06-03 12:38 | Inpatient (IN) | payer BC, MEDICARE, MEDICAID ==
[2021-06-03 13:19] VITALS: RESP 18
--- NOTE | 2021-06-03 14:10 | ED ---
Psych HPI - General Chief Complaint: Psychiatric Symptoms Stated Complaint: mental health Time Seen by Provider: 06/03/21 13:19 Source: patient, RN notes reviewed Mode of arrival: ambulatory Limitations: no limitations - History of Present Illness Initial Comments: 35-year-old female presents emergency Department with police for psychiatric evaluation. Patient was ordered petition. Patient states she was upset earlier today threatening to harm herself to her friend her friend petitioned her. Patient states she is not suicidal or homicidal she states she did talk to her counselor after this which helped her. Patient has attempted self past but nothing recent denies drug or alcohol abuse - Related Data Home Medications Medication Instructions Recorded Confirmed ARIPiprazole [Abilify] 20 mg PO DAILY 06/03/21 06/03/21 Desvenlafaxine [Pristiq ER] 100 mg PO DAILY 06/03/21 06/03/21 Ibuprofen [Motrin] 800 mg PO BID PRN 06/03/21 06/03/21 Melatonin 3 mg PO HS 06/03/21 06/03/21 Allergies Allergy/AdvReac Type Severity Reaction Status Date / Time No Known Allergies Allergy Verified 06/03/21 13:19 Review of Systems ROS Statement: Those systems with pertinent positive or pertinent negative responses have been documented in the HPI. ROS Other: All systems not noted in ROS Statement are negative. Past Medical History Past Medical History: No Reported History Additional Past Medical History / Comment(s): borderline personality disorder History of Any Multi-Drug Resistant Organisms: None Reported Past Surgical History: Orthopedic Surgery Additional Past Surgical History / Comment(s): plate and screws in left ankle Past Psychological History: Anxiety, Bipolar, Depression Smoking Status: Current every day smoker Past Alcohol Use History: Rare Past Drug Use History: Cocaine, Marijuana General Exam Limitations: no limitations General appearance: alert, in no apparent distress Head exam: Present: atraumatic, normocephalic, normal inspection Eye exam: Present: normal appearance, PERRL, EOMI. Absent: scleral icterus, conjunctival injection, periorbital swelling ENT exam: Present: normal exam, mucous membranes moist Neck exam: Present: normal inspection, full ROM. Absent: tenderness, meningismus, lymphadenopathy Respiratory exam: Present: normal lung sounds bilaterally. Absent: respiratory distress, wheezes, rales, rhonchi, stridor Cardiovascular Exam: Present: regular rate, normal rhythm, normal heart sounds. Absent: systolic murmur, diastolic murmur, rubs, gallop, clicks Neurological exam: Present: alert, oriented X3, CN II-XII intact Psychiatric exam: Present: normal affect, normal mood Course Vital Signs 06/03/21 13:15 Temperature 98.3 F Pulse Rate 78 Respiratory 18 Rate Blood Pressure 109/78 O2 Sat by Pulse 100 Oximetry Medical Decision Making - Lab Data Result diagrams: 06/04/21 07:15 Lab Results 06/03/21 Range/Units 13:49 Urine Opiates Screen Not Detected (NotDetected) Ur Oxycodone Screen Not Detected (NotDetected) Urine Methadone Screen Not Detected (NotDetected) Ur Propoxyphene Screen Not Detected (NotDetected) Ur Barbiturates Screen Not Detected (NotDetected) U Tricyclic Antidepress Not Detected (NotDetected) Ur Phencyclidine Scrn Not Detected (NotDetected) Ur Amphetamines Screen Not Detected (NotDetected) U Methamphetamines Scrn Not Detected (NotDetected) U Benzodiazepines Scrn Not Detected (NotDetected) Urine Cocaine Screen Detected H (NotDetected) U Marijuana (THC) Screen Detected H (NotDetected) Disposition Clinical Impression: Situational depression, Suicidal ideation Disposition: TRANSFER TO PSYCH HOSP/UNIT
[2021-06-03 14:39] LABS: Amphetamine Screen,Urine Not Detected (NotDetected); Barbiturate Screen,Urine Not Detected (NotDetected); Benzodiazepines Screen,Urine Not Detected (NotDetected); Cocaine Screen,Urine Detected (NotDetected); Methadone Screen, Urine Not Detected (NotDetected); Opiate Screen,Urine Not Detected (NotDetected); Oxycodone Screen, Urine Not Detected (NotDetected); Phencyclidine Screen,Urine Not Detected (NotDetected); Tricyclic Antidepressant,Urine Not Detected (NotDetected); Urn Cannabinoid Scrn Detected (NotDetected)
[2021-06-03] MEDS ORDERED: ACETAMINOPHEN TAB 325 MG TAB PO PRN (16:58)
[2021-06-03] MEDS ORDERED: MAGNESIUM HYDROXIDE 2,400 MG/10 ML CUP PO PRN (16:58)
[2021-06-03] MEDS ORDERED: MAG HYDROX/AL HYDROX/SIMETH 30 ML CUP PO PRN (16:58)
[2021-06-03] MEDS ORDERED: LORazepam 2 MG/ML INJ IM PRN (17:03)
[2021-06-03] MEDS ORDERED: haloperidoL 5 MG TAB PO PRN (17:05)
[2021-06-03] MEDS ORDERED: HALOPERIDOL LACTATE 5 MG/ML 1 ML VIAL IM PRN (17:05)
[2021-06-03] MEDS ORDERED: traZODone HCL 100 MG TAB PO PRN (17:36)
[2021-06-03] MEDS: LORazepam 1 MG TAB PO PRN (18:57)
[2021-06-04] MEDS: NICOTINE 14MG/24HR PATCH TRANSDERM SCH (08:01)
[2021-06-04 08:22] LABS: Basophils # (A) 0.1 k/uL (0-0.2); Basophils % (A) 1 %; Eosinophils # (A) 0.1 k/uL (0-0.7); Eosinophils % (A) 1 %; HCT 41.5 % (34.0-46.0); HGB 14.3 gm/dL (11.4-16.0); Lymphocytes # (A) 2.2 k/uL (1.0-4.8); Lymphocytes % (A) 26 %; MCH 31.2 pg (25.0-35.0); MCHC 34.4 g/dL (31.0-37.0); MCV 90.8 fL (80.0-100.0); Mean Platelet Volume 9.4; Monocytes # (A) 0.5 k/uL (0-1.0); Monocytes % (A) 6 %; Neutrophils # (A) 5.7 k/uL (1.3-7.7); Neutrophils % (A) 66 %; Platelet Count 231 k/uL (150-450); RBC 4.57 m/uL (3.80-5.40); RDW 12.8 % (11.5-15.5); WBC 8.7 k/uL (3.8-10.6)
[2021-06-04 11:35] LABS: ALT 29 U/L (4-34); AST 38 U/L (14-36); African American GFR (CKD) >90 (>60 ml/min/1.73 sqM); Albumin 4.6 g/dL (3.5-5.0); Alkaline Phosphatase 80 U/L (38-126); Anion Gap 12 mmol/L; Blood Urea Nitrogen 15 mg/dL (7-17); Calcium 9.9 mg/dL (8.4-10.2); Carbon Dioxide 23 mmol/L (22-30); Chloride 103 mmol/L (98-107); Glucose 89 mg/dL (74-99); Non-African American GFR(CKD) 83 (>60 ml/min/1.73 sqM); Potassium 3.9 mmol/L (3.5-5.1); Sodium 138 mmol/L (137-145); Total Bilirubin 0.9 mg/dL (0.2-1.3); Total Protein 7.4 g/dL (6.3-8.2)
[2021-06-04 11:52] LABS: Chol/HDL Ratio 3.21; Cholesterol 125 mg/dL (0-200)
--- NOTE | 2021-06-04 12:55 | HP ---
HISTORY AND PHYSICAL DATE OF SERVICE: 06/04/2021 IDENTIFYING DATA: The patient is a 35-year-old female. She has been living just recently with a friend. She was seen in the ED after being petitioned by a friend. CHIEF COMPLAINT: The patient was depressed. She was making threats to harm herself. She has had multiple stress issues. HISTORY OF PRESENTING ILLNESS: The patient reports having had a psychiatric hospitalization 4 months ago at [facility]. She was vague about the specifics of that. She has been seeing Ramona Meza at [facility]. She says she has worked with her for 2 years. She has had recent stress issues in that she just got 2 weeks ago. One week ago her left her because she had relapsed to drugs. The patient said that she was 2 years clean from cocaine and crack cocaine. She says her drug of choice is crack cocaine and she has had been not using crack cocaine for about 5 years. She said just prior to getting , she relapsed and used cocaine 2-3 times before their marriage. She said since she also used cocaine 2-3 times. Her urine drug screen is positive for cocaine. She said because she relapsed her left her and indicated that the did not want anything more to do with her. She says that she and her are not in contact with one another. She was very distressed over this and had made a statement that she thought about harming herself. That was on the day prior to admission. That is what brought her to the ED when a friend filed a petition. She said also yesterday a little later in the day, she called her therapist Ms. Meza. They were setting up a followup appointment in the near term to help address some of her stress issues. She also notes that in addition to this particular situation plus relapsing to drug use, her father 4 months ago of Covid, which was another major stress issue for her as well. She said that she has been working at [employer]. Because of all of the stress she has been under, she has taken the last week off. 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 She said she grew up in a "/Orthodox" home and that it was very difficult for her throughout her teenage years. She left home at 16. She continues to have some flashbacks to the stress related to that. She notes that she has been sleeping poorly. She has loss of motivation, energy and interest. She denies hallucinations or delusional thinking. She does acknowledge some posttraumatic issues. Current psychotropic medications include: Pristiq 100 mg a day and Abilify 20 mg a day. She says she has been taking her medications consistently. She is admitted for further evaluation. SUBSTANCE USE HISTORY: As above. PAST MEDICAL HISTORY: The patient reports no current or chronic general health complaints. FAMILY AND SOCIAL HISTORY: She said she completed a GED. She has been working at [employer]. She has interests in going back to school for [employer]. MENTAL STATUS EXAM: Patient sat with some restlessness. She gave fairly good eye contact. She answered questions with direct responses. Her thoughts were clear. She did not say a lot. She was not too spontaneous, though she was somewhat interactive. She had an anxious, tense manner at affect. Her mood was depressed. She was significantly distressed. There was no indication of thought disorder. She acknowledged that she had expressed some thoughts of harming herself because of the stress she was under. She denied that she had any impulse or plans at the time of our interview. On cognitive exam, she was oriented x3 and alert. She did make an effort to answer formal cognitive questions though she paid good attention during the interview. She provided specific information that was consistent with what is documented in the medical record. Insight was fair. Judgment uncertain. Fund of knowledge average or somewhat above average. PHYSICAL EXAM: As per medical consultation. ASSESSMENT: This 35-year-old female is diagnosed with major depression. She has apparently had some posttraumatic issues as well. Also, substance abuse issues are in the picture, though apparently there has been only a brief relapse after a 2 year period of no use of drugs. She has had ongoing followup through [facility] and at this point, the best information I have that she has been fairly consistent in making her appointments. We will need to assess further for issues related to the petition. STRENGTHS: Include chinik intelligence. WEAKNESSES: Includes substance relapse and multiple current stress issues. DIAGNOSES: 1. Major depression, rule out psychotic symptoms relating to high stress. 2. Cocaine/crack cocaine dependence in relapse. RECOMMENDATIONS: Patient will be admitted for comprehensive medical psychiatric and psychosocial evaluation. We will engage the patient in individual and group therapeutic activities. At this point, I will continue her psychotropic medications the same including Pristiq ER 100 mg a day and Abilify 20 mg a day. I will be reviewing medications with the patient further. We will be trying to get information from [facility] in terms of some input regarding her status for hospitalization, question of voluntary admission versus petition and issues related to her medication. We could look at making appropriate medication adjustments or changes as indicated. We will focus on stabilization and discharge planning. MMJC / YOANNAN: [id number] /
[2021-06-04] MEDS: LORazepam 1 MG TAB PO PRN (13:45)
[2021-06-04 16:45] LABS: Hemoglobin A1C 4.2 % (4.0-6.0)
--- NOTE | 2021-06-04 23:35 | CONS ---
CONSULTATION CHIEF COMPLAINT: Major depression with suicidal intent. HISTORY OF PRESENT ILLNESS: This 35-year-old white female apparently mentioned to some friends that she was going to kill herself. She was brought to the emergency room. She was admitted. REVIEW OF SYSTEMS: She denies any headaches, chest pain, shortness of breath, cough, abdominal pain, nausea, vomiting, melena, hematochezia, urinary complaints, diabetes, chills, fever, etc. Past medical history, family history and personal and social histories reveal she is not allergic to any medication. When she was last seen in the office, she was on oxybutynin, Abilify, trazodone and ibuprofen. Surgically she has had a cyst removed from the breast. She does smoke. She drinks occasionally. PHYSICAL EXAM: Blood pressure 120/78, pulse of 80, respirations 16. She is afebrile. In general, she appeared to be well developed, well nourished, in no acute distress. She was tall, slender. Head, ears, eyes, nose, mouth and throat were normal. Neck veins not distended. Chest is clear to auscultation and percussion. Cardiac exam is normal and the. Abdomen is soft and nontender and extremities are normal. Neurologically she is intact with a depressed affect. IMPRESSION: She is admitted to the hospital with diagnosis: Major depression with suicidal thoughts. RECOMMENDATIONS: None. MMODL / IJN: [id number] /
[2021-06-05] MEDS: NICOTINE 14MG/24HR PATCH TRANSDERM SCH (08:19)
[2021-06-05] MEDS ORDERED: IBUPROFEN 800 MG TAB PO PRN (11:38)
[2021-06-05] MEDS: ARIPiprazole 15 MG TAB PO SCH (12:47)
[2021-06-05] MEDS: DESVENLAFAXINE SUCCINATE 50 MG TAB.ER.24H PO SCH (12:47)
--- NOTE | 2021-06-05 12:50 | PN ---
PROGRESS NOTE DATE OF SERVICE: 06/05/2021 CHIEF COMPLAINT: The patient was depressed. She was making threats to harm herself. She has had multiple stress issues. INTERVAL HISTORY: She had a quiet day yesterday. She tends to keep to herself. She does come out on the unit. She does not interact too much with others. She attended one group yesterday and seemed to be appropriate in her interactions. She spent a fair amount of time in her room. Her major case detective, Sandra Meza from [facility], came in later in the afternoon and met with her. She did not give much information about the discussions. She said for the most part, Sandra did not share much and mostly talked with her. It is noted that staff had communicated with the major case detective, who indicated it was important that the patient be continued on the petition process due to concerns about suicidality. The patient said she slept fair last night. Today she has been up. She says that she has some understanding about the petition process and understood Sandra's concern. The patient attended group this morning. She has a quiet manner, though still will be out some. She does not interact too much with others. When I discussed medications with her, I noted that she is on a fairly assertive dose of Abilify and a maximum dose of Pristiq. At this point the patient said she would choose to continue with the medications she is on and was willing to make an adjustment in Abilify versus switching to alternative medications. I discussed that if she does not show a reasonable response to Pristiq, then the next step would looking at an alternative antidepressant. The patient states that she tolerates her medications well. MENTAL STATUS: Patient sat in a slumped posture. She did not give too much eye contact. She answered questions directly. Her thoughts were clear and coherent. Her responses were brief and to the point. Her affect was flat, her mood depressed. She seemed moderately distressed. There was no indication for thought disorder. She was vague about thoughts of harm. Cognition was clear. ASSESSMENT: I will continue the current diagnosis and treatment plan. I will continue her on Pristiq 100 mg a day. I will increase her Abilify to 30 mg a day. I reviewed the petition process with the patient. We discussed discharge planning issues. We will focus on stabilization and discharge planning. MMODL / IJN: [id number] /
[2021-06-05] MEDS: MELATONIN 3 MG TABLET PO SCH (20:32)
[2021-06-06] MEDS: NICOTINE 14MG/24HR PATCH TRANSDERM SCH (08:27)
[2021-06-06] MEDS: ARIPiprazole 15 MG TAB PO SCH (08:28)
[2021-06-06] MEDS: DESVENLAFAXINE SUCCINATE 50 MG TAB.ER.24H PO SCH (08:28)
--- NOTE | 2021-06-06 11:23 | P.PN ---
Progress Note - Text Progress Note Date: 06/06/21 Interval History: Patient was seen sitting in on group today and was directable and agreeable to speak with keno writer / runner in the office. Patient explained briefly about the circumstances that led her to be hospitalized. She states that she is feeling suicidal on the day of coming into the hospital however was initially guarded about the reasons why. She states that she feels that her is going to divorce her and that she needs to deal with her problems. She states that she has a history of borderline personality disorder. She states that she has been going to [facility] to work on her coping skills and anger management. She states that she is able to sleep fairly last night and claims that the Abilify and the Pristiq have been helping her. She was agreeable to try Lamictal. She was tearful when speaking about her today. At this time patient denies any suicidal or homical ideations, intent or plan. Patient denies any auditory, visual hallucinations and denies any paranoia or delusions. Patient denies any side effects from the medications and has been compliant with meds. She claims that she has not spoken with her mergers and acquisitions attorney at this time and plans to defer. Mental Status Exam: General Appearance: Patient appears to be tall, thin, several tattoos, stated age is alert, directable, and attempts to be cooperative. Behavior: Patient is calmly seated without any agitated behavior. Speech: Patient's speech is fluent and nonpressured. Mood/Affect: Mood is improving mildly, affect is congruent and constricted. Suicidality/Homicidality: Patient denies having any suicidal or homicidal ideation intent or plan. Perceptions: Patient denies any visual hallucinations and denies any auditory hallucinations Though content/process: Evasive at times. Goal oriented. Memory and concentration: AOX3, grossly intact for the purposes of this session Judgment and insight: Chronically poor, Improving mildly Assessment Depressive disorder unspecified Borderline personality disorder Cocaine use disorder Cannabis use disorder Nicotine dependence Plan: -Patient continues to meet criteria for inpatient psychiatric admission for symptom stabilization and safety. Patient has signed medication consent and was placed in patient's chart. -Medications: Continue with Pristiq 100 mg per day for mood/anxiety. Continue with Abilify 30 mg daily as a mood adjunct/mood stabilization. Added Lamictal 25 mg twice a day for mood stabilization/depression. Spoke with patient in detail about the risk of a potential rash and to seek urgent medical care if this does occur, patient readily understood and agreed. -When necessary Ativan and Haldol for agitation/aggression. -NRT - nicotine patch -SW on board for discharge planning. Encouraged the patient to participate in milieu. Patient will meet with her mergers and acquisitions attorney today for a deferral as she plans to sign today. Likely discharge tomorrow.
[2021-06-06] MEDS: lamoTRIgine 25 MG TAB PO SCH ×2 (13:32→20:05)
[2021-06-06] MEDS: MELATONIN 3 MG TABLET PO SCH (20:04)
[2021-06-07 07:04] VITALS: BP 117/67; PULSE 76; TEMP 97.7
[2021-06-07] MEDS: DESVENLAFAXINE SUCCINATE 50 MG TAB.ER.24H PO SCH (08:30)
[2021-06-07] MEDS: lamoTRIgine 25 MG TAB PO SCH (08:31)
[2021-06-07] MEDS: ARIPiprazole 15 MG TAB PO SCH (08:31)
[2021-06-07] MEDS: NICOTINE 14MG/24HR PATCH TRANSDERM SCH (08:31)
--- NOTE | 2021-06-07 10:30 | P.DS ---
Providers Date of admission: 06/03/21 16:54 Expected date of discharge: 06/07/21 Attending physician: Corey Smith MD Consults: 06/03/21 16:58 Consult Physician Routine Consulting Provider: Kieran Reyes Consult Reason/Comments: H and P Do you want consulting provider notified?: Yes, Notify in am Primary care physician: Kieran Reyes - Discharge Diagnosis(es) (1) Depressive disorder Current Visit: Yes Status: Acute Priority: High (2) Borderline personality disorder Current Visit: Yes Status: Acute Priority: High (3) Cocaine use disorder Current Visit: Yes Status: Acute Priority: Medium (4) Cannabis use disorder, mild, abuse Current Visit: Yes Status: Acute Priority: Medium (5) Nicotine dependence Current Visit: Yes Status: Acute Priority: Low Hospital Course: Admission HPI: Admission note was completed by Dr. Bautista "the patient is a 35-year-old female. She has been living just recently with a friend. She was seen in the ED after being petitioned by a friend. The patient was depressed. She was making threats to harm herself. She has had multiple stress issues. The patient reports having had a psychiatric hospitals H4 months ago at [facility]. She was vague about the specifics of that. She has been seeing [facility]. She says she has worked with her for 2 years. She has had recent stress issues in that she just got 2 weeks ago. One week ago her left her because she had relapsed on drugs. The patient said that she was 2 years clean from cocaine and crack cocaine. She says her drug of choice is crack cocaine and she has been not using crack cocaine for about 5 years. She said just prior to getting , she relapsed and used cocaine 2-3 times before their marriage. She said since she also used cocaine 2-3 times. Her urine screen is positive for cocaine. She said because she relapsed her left her and indicated that the did not want anything more to do with her. She says that she and her are not in contact with one another. She was very distressed over this and had made a statement that she thought about harming herself. That was on the day prior to admission. That is what brought her to the ED within a friend filled a petition. She said also yesterday a little later in the day, she called her therapist Miss Meza. They were setting up a follow-up appointment in the near term to help address some of her stress issues. She also notes that in addition to this particular situation plus relapsing to drug use, her father 4 months ago due to Covid , which was another major stress issue for her as well. She said she has been working at [employer]. Because of all of the stress she has been under, she has taken the last week off. She notes that she had stress issues as a child with the main issue being that she came out of a previous person with alternative sexual orientation at age 11. She said she grew up in a "/Zoroastrianism" home that it was very difficult for her throughout her teenage years. She left home at 16. She continues to have some flashbacks to the stress related to that. She notes that she has been sleeping poorly. She has loss of motivation, energy and interest. She denies hallucinations or delusions. She does acknowledge some posttraumatic issues. Current psychotropic medications include: Pristiq 100 mg a day and Abilify 20 mg a day. She says she has been taking her medications consistently." Hospital course: Upon admission to the unit patient was initially depressed anxious and suicidal. Patient was however directable and agreeable to commence treatment and signed adult voluntary form. Patient got along well with other patients on the unit and followed unit protocol. Patient was compliant with the medications and denied any side effects throughout hospital course. Patient was started on her home dose of Abilify however this was increased to 30 mg a day for mood stabilization, Pristiq was resumed at 100 mg a day for anxiety/mood. Patient was also started on Lamictal 25 mg twice a day for mood stabilization/depression. Sponge Fisherman spoke in detail with patient about the risk of a rash and to monitor for this and also to ensure compliance of the medications. Patient verbally understood and agreed. Patient spoke of her stressors and engaged in therapy both group and individual. Patient was also seen by medical team for history and physical exam. Throughout the course of the hospita lization patient gradually improved with regards to mood, anxiety, sleep and became more future oriented with improved insight and judgment. On the day of discharge patient denied any suicidal or homicidal ideations intent or plan denied any auditory or visual hallucinations. Patient endorsed wanting to live for her health and family. The patient denied any access to guns or weapons. Patient denied any paranoia and did not endorse any delusions. Patient does have a significant history of substance abuse and was counseled on abstaining from all substances including alcohol and marijuana. Patient was offered however declined inpatient substance-abuse rehab. Patient was also counseled on the medications and need for regular compliance and was encouraged to follow-up with their outpatient appointment for mental health and also for primary care. Patient will likely be staying with a friend upon discharge, social worker school to make contact with a friend to ensure safety upon discharge. Mental status exam: General Appearance: Patient appears to be tall, thin, stated age is alert, pleasant, and cooperative. Patient is in no acute distress and has improved hygiene and grooming. Double tattoos Behavior: Patient is calmly seated without any agitated behavior. Speech: Patient's speech is fluent and nonpressured. Mood/Affect: Patient reports their mood is "good", affect is congruent and euthymic. Suicidality/Homicidality: Patient denies having any suicidal or homicidal ideation intent or plan. Perceptions: Patient denies any auditory or visual hallucinations. Though content/process: There is no evidence of any delusional thought content and thought process is linear and goal-directed. more future oriented Memory and concentration: AOX3, grossly intact for the purposes of this session. Can spell "WORLD" backwards correctly. Judgment and insight: chronically poor, however has improved with guarded prognosis Impression: Depressive disorder unspecified Borderline personality disorder Cocaine use disorder Cannabis use disorder Nicotine dependence Plan: -Continue with discharge today as patient has improved and stabilized psychiatrically and is not currently an imminent threat to herself and/or others. Patient will remain at chronically elevated risk for harm to self and/or others due to her impulsivity and polysubstance abuse. -Continue medications: Pristiq 100 mg daily for mood/anxiety, Abilify 30 mg daily for mood stabilization, Lamictal 25 mg twice a day for mood stabilization/depression. -Patient was counseled on the need for medication compliance and appropriate follow-up at mental health and also primary care for medical issues. Patient verbalized understanding and agreed. -Social work to contact patient's friend who she will be staying with upon di scharge to ensure safety. Social work also to arrange for patients follow up appointments for psychiatric care along with follow up with primary care provider. -Patient counseled on abstaining from recreational drugs and marijuana and alcohol. Was informed/educated on the adverse effects on their physical and mental health. Patient verbally agreed and understood. Patient was offered substance abuse treatment however declined at this time. -Patient was instructed to return to the hospital or seek immediate medical care if their psychiatric or medical symptoms do worsen or reoccur. Laboratory Results WBC 8.7 k/uL (3.8-10.6) 06/04/21 07:15 RBC 4.57 m/uL (3.80-5.40) 06/04/21 07:15 Hgb 14.3 gm/dL (11.4-16.0) 06/04/21 07:15 Hct 41.5 % (34.0-46.0) 06/04/21 07:15 MCV 90.8 fL (80.0-100.0) 06/04/21 07:15 MCH 31.2 pg (25.0-35.0) 06/04/21 07:15 MCHC 34.4 g/dL (31.0-37.0) 06/04/21 07:15 RDW 12.8 % (11.5-15.5) 06/04/21 07:15 Plt Count 231 k/uL (150-450) 06/04/21 07:15 MPV 9.4 06/04/21 07:15 Neutrophils % 66 % 06/04/21 07:15 Lymphocytes % 26 % 06/04/21 07:15 Monocytes % 6 % 06/04/21 07:15 Eosinophils % 1 % 06/04/21 07:15 Basophils % 1 % 06/04/21 07:15 Neutrophils # 5.7 k/uL (1.3-7.7) 06/04/21 07:15 Lymphocytes # 2.2 k/uL (1.0-4.8) 06/04/21 07:15 Monocytes # 0.5 k/uL (0-1.0) 06/04/21 07:15 Eosinophils # 0.1 k/uL (0-0.7) 06/04/21 07:15 Basophils # 0.1 k/uL (0-0.2) 06/04/21 07:15 Sodium 138 mmol/L (137-145) 06/04/21 07:15 Potassium 3.9 mmol/L (3.5-5.1) 06/04/21 07:15 Chloride 103 mmol/L (98-107) 06/04/21 07:15 Carbon Dioxide 23 mmol/L (22-30) 06/04/21 07:15 Anion Gap 12 mmol/L 06/04/21 07:15 BUN 15 mg/dL (7-17) 06/04/21 07:15 Creatinine 0.90 mg/dL (0.52-1.04) 06/04/21 07:15 Est GFR (CKD-EPI)AfAm >90 (>60 ml/min/1.73 sqM) 06/04/21 07:15 Est GFR (CKD-EPI)NonAf 83 (>60 ml/min/1.73 sqM) 06/04/21 07:15 Glucose 89 mg/dL (74-99) 06/04/21 07:[address] Glu mg/dL 74 06/04/21 07:15 Hemoglobin A1c 4.2 % (4.0-6.0) 06/04/21 07:15 Calcium 9.9 mg/dL (8.4-10.2) 06/04/21 07:15 Total Bilirubin 0.9 mg/dL (0.2-1.3) 06/04/21 07:15 AST 38 U/L (14-36) H 06/04/21 07:15 ALT 29 U/L (4-34) 06/04/21 07:15 Alkaline Phosphatase 80 U/L (38-126) 06/04/21 07:15 Total Protein 7.4 g/dL (6.3-8.2) 06/04/21 07:15 Albumin 4.6 g/dL (3.5-5.0) 06/04/21 07:15 Triglycerides 105.0 mg/dL (0.0-149.0) 06/04/21 07:15 Cholesterol 125 mg/dL (0-200) 06/04/21 07:15 LDL Cholesterol, Calc 65.0 mg/dL (0.0-131.0) 06/04/21 07:15 VLDL Cholesterol, Calc 21.00 mg/dL (5.00-40.00) 06/04/21 07:15 HDL Cholesterol 39.0 mg/dL (40.0-60.0) L 06/04/21 07:15 Cholesterol/HDL Ratio 3.21 06/04/21 07:15 TSH 1.160 mIU/L (0.465-4.680) 06/04/21 07:15 Urine Opiates Screen Not Detected (NotDetected) 06/03/21 13:49 Ur Oxycodone Screen Not Detected (NotDetected) 06/03/21 13:49 Urine Methadone Screen Not Detected (NotDetected) 06/03/21 13:49 Ur Propoxyphene Screen Not Detected (NotDetected) 06/03/21 13:49 Ur Barbiturates Screen Not Detected (NotDetected) 06/03/21 13:49 U Tricyclic Antidepress Not Detected (NotDetected) 06/03/21 13:49 Ur Phencyclidine Scrn Not Detected (NotDetected) 06/03/21 13:49 Ur Amphetamines Screen Not Detected (NotDetected) 06/03/21 13:49 U Methamphetamines Scrn Not Detected (NotDetected) 06/03/21 13:49 U Benzodiazepines Scrn Not Detected (NotDetected) 06/03/21 13:49 Urine Cocaine Screen Detected (NotDetected) H 06/03/21 13:49 U Marijuana (THC) Screen Detected (NotDetected) H 06/03/21 13:49 Vital Signs Temp 97.7 F 06/07/21 07:03 Pulse 76 06/07/21 07:03 Resp 18 06/07/21 07:03 BP 117/67 06/07/21 07:03 Pulse Ox 97 06/07/21 07:03 Allergies Allergy/AdvReac Type Severity Reaction Status Date / Time No Known Allergies Allergy Verified 06/03/21 13:19 Allergies Allergy/AdvReac Type Severity Reaction Status Date / Time No Known Allergies Allergy Verified 06/03/21 13:19 Patient Condition at Discharge: Stable Plan - Discharge Summary Discharge Rx Participant: No New Discharge Prescriptions: New lamoTRIgine [LaMICtal] 25 mg PO BID 30 Days tab ARIPiprazole [Abilify] 30 mg PO DAILY 30 Days tab Nicotine 14Mg/24Hr Patch [Habitrol] 1 patch TRANSDERM DAILY 14 Days patch Continue Ibuprofen [Motrin] 800 mg PO BID PRN PRN Reason: Pain Desvenlafaxine [Pristiq ER] 100 mg PO DAILY 30 Days tab Changed Melatonin 6 mg PO HS 30 Days tab Discontinued ARIPiprazole [Abilify] 20 mg PO DAILY Discharge Medication List Ibuprofen [Motrin] 800 mg PO BID PRN 06/03/21 [History] ARIPiprazole [Abilify] 30 mg PO DAILY 30 Days tab 06/07/21 [Rx] Desvenlafaxine [Pristiq ER] 100 mg PO DAILY 30 Days tab 06/07/21 [Rx] Melatonin 6 mg PO HS 30 Days tab 06/07/21 [Rx] Nicotine 14Mg/24Hr Patch [Habitrol] 1 patch TRANSDERM DAILY 14 Days patch 06/07/21 [Rx] lamoTRIgine [LaMICtal] 25 mg PO BID 30 Days tab 06/07/21 [Rx] Follow up Appointment(s)/Referral(s): [facility] [Outside] - 06/11/21 3:00 pm (06-11-21 @ 3:00 with Gabriela Tejada 06-12-21 @ 11:[address] Payton ) Kieran Reyes MD [Primary Care Provider] - 1-2 days Activity/Diet/Wound Care/Special Instructions: Activity and diet as tolerated. Avoid the use of street drugs and alcohol. Take all medications as prescribed. When you are in need of refills on your medications please contact your medical provider and/or outpatient psychiatrist to have this done. Please go to scheduled outpatient appointment for aftercare treatment. If symptoms return or become worse, call the crisis line at and/or go to the nearest emergency room for evaluation. Discharge Disposition: HOME SELF-CARE
== END 2021-06-07 13:50 | disposition home or self-care (01) | DRG 885 ==
LOC: EC 12:38 → 3MHU 16:54
PROVIDERS: ADMIT Psychiatry & Neurology Psychiatry; ATTEND Psychiatry & Neurology Psychiatry
DX: F31.30 Bipolar disorder, current episode depressed, mild or moderate severity, unspecified (principal); R45.851 Suicidal ideations; F14.20 Cocaine dependence, uncomplicated; F43.21 Adjustment disorder with depressed mood; F60.3 Borderline personality disorder; F41.9 Anxiety disorder, unspecified; F12.10 Cannabis abuse, uncomplicated; F17.200 Nicotine dependence, unspecified, uncomplicated; Z79.899 Other long term (current) drug therapy
CPT/HCPCS: 80053; 80061; 80306; 82075; 83036; 84443; 85025; 99285